=== PATIENT | male | born 1970 | race Hispanic/Latino ===

== ENCOUNTER 2021-06-07 10:04 | Emergency (ER) | payer SELFPAY ==
[~2021-06-07] VITALS: Ht 175.3 cm; Wt 67.1 kg
[2021-06-07] MEDS ORDERED: SOLU-MEDROL 125MG VIAL IVP SCH (11:00)
[2021-06-07] MEDS ORDERED: DOXYCYCLINE HYCLATE 100 MG TABLET PO SCH (11:00)
[2021-06-07] MEDS ORDERED: BENZONATATE 100 MG CAPSULE PO SCH (11:00)
[2021-06-07] MEDS ORDERED: IPRATROPIUM/ALBUTEROL SULFATE 3 ML SOLUTION IH ONE (11:00)
[2021-06-07] MEDS ORDERED: ALBU1.252 IH (12:21)
[2021-06-07] MEDS ORDERED: PRED20TA3 PO (12:21)
[2021-06-07] MEDS ORDERED: DOXY100C5 PO (12:21)
[2021-06-07 12:43] VITALS: BP 132/76
== END 2021-06-07 12:45 | disposition home or self-care (01) ==
LOC: EDH 10:04
DX: J44.1 Chronic obstructive pulmonary disease with (acute) exacerbation (principal); Z20.822 Contact with and (suspected) exposure to COVID-19; Z87.891 Personal history of nicotine dependence
CPT/HCPCS: 71045; 87635; 87804 ×2; 93005; 94640; 96374; 99285; C9803; J2930

== ENCOUNTER 2021-07-24 05:40 | Emergency (ER) | payer SELFPAY ==
[~2021-07-24] VITALS: Ht 175.3 cm; Wt 54.4 kg
[~2021-07-24 05:40] MED LIST: ALBU1.252 IH; DOXY100C5 PO; PRED20TA3 PO
[2021-07-24] MEDS ORDERED: SOLU-MEDROL 125MG VIAL ONE (05:54)
[2021-07-24] MEDS ORDERED: AZITHROMYCIN 250 MG TABLET PO ONE ×2 (05:54→06:00)
[2021-07-24] MEDS ORDERED: SOLU-MEDROL 125MG VIAL IVP ONE (06:00)
[2021-07-24] MEDS ORDERED: IPRATROPIUM/ALBUTEROL SULFATE 3 ML SOLUTION IH ONE (06:00)
[2021-07-24] MEDS ORDERED: ONDANSETRON 4MG INJ ONE (06:02)
[2021-07-24 06:07] LABS: ABG BASE EXCESS -2.2 mmol/L (-2.0-3.0); ABG OXYGEN SATURATION 86.6 % (95.0-99.0); ABG PCO2 53 mmHg (35-48)
[2021-07-24 06:11] LABS: BASOPHILS % (AUTO) 1.4 % (0.0-5.0); EOSINOPHILS % (AUTO) 11.3 % (0.0-8.0); LYMPHOCYTES % (AUTO) 20.2 % (21.0-51.0); MEAN CORPUSCULAR HEMOGLOBIN 25.9 pg (27.0-33.0); MEAN CORPUSCULAR HGB CONC 31.4 g/dL (32.0-36.0); MEAN CORPUSCULAR VOLUME 82.4 fL (79-99); MONOCYTES % (AUTO) 8.6 % (3.0-13.0); NEUTROPHILS % (AUTO) 58.2 % (40.0-77.0); PLATELET COUNT (AUTO) 460 K/uL (130-400); RED CELL DISTRIBUTION WIDTH 17.7 % (11.0-15.5); WHITE BLOOD COUNT (AUTO) 11.8 K/uL (4.8-10.8)
[2021-07-24 06:30] LABS: ALBUMIN 4.1 g/dL (3.5-5.0); BILIRUBIN,TOTAL 0.7 mg/dL (0.2-1.0); POTASSIUM 3.3 mmol/L (3.5-5.1); TOTAL PROTEIN, SERUM 7.6 g/dL (6.0-8.3)
[2021-07-24 06:36] LABS: B-TYPE NATRIURETIC PEPTIDE 13 pg/mL (0-100)
[2021-07-24 07:18] VITALS: BP 127/85
[2021-07-24] MEDS ORDERED: GUAIFENESIN-CODEINE 5 ML SYRUP PO SCH (07:20)
[2021-07-24] MEDS ORDERED: ALBUTEROL INHALER 90MCG/INH IH SCH (07:30)
[2021-07-24] MEDS ORDERED: AZIT1PAC7 PO (07:30)
[2021-07-24] MEDS ORDERED: PRED20TA3 PO (07:30)
== END 2021-07-24 08:00 | disposition home or self-care (01) ==
LOC: EDH 05:40
DX: J44.1 Chronic obstructive pulmonary disease with (acute) exacerbation (principal); Z20.822 Contact with and (suspected) exposure to COVID-19; F17.200 Nicotine dependence, unspecified, uncomplicated; Z79.52 Long term (current) use of systemic steroids; Z79.899 Other long term (current) drug therapy
CPT/HCPCS: 36415; 36600; 71045; 80053; 82435; 82803; 82947; 83605; 83880; 84132; 84295; 84484; 85018; 85025; 87635; 87804 ×2; 93005; 94644; 96374; 96375; 99285; C9803; J2405; J2930

== ENCOUNTER 2021-12-29 01:11 | Emergency (ER) | payer OTHER ==
[~2021-12-29] VITALS: Ht 175.3 cm; Wt 65.8 kg
[~2021-12-29 01:11] MED LIST changes: +AZIT1PAC7 PO
[2021-12-29] MEDS ORDERED: IPRATROPIUM/ALBUTEROL SULFATE 3 ML SOLUTION IH ONE (02:00)
[2021-12-29] MEDS ORDERED: SOLU-MEDROL 125MG VIAL IVP ONE (02:00)
[2021-12-29 02:28] VITALS: BP 114/86
[2021-12-29] MEDS ORDERED: IPRAHFA IH (02:48)
[2021-12-29] MEDS ORDERED: ALBU18HF7 IH (02:48)
[2021-12-29] MEDS ORDERED: PRED20TA3 PO (02:48)
== END 2021-12-29 03:03 | disposition home or self-care (01) ==
LOC: EDH 01:11
DX: J44.1 Chronic obstructive pulmonary disease with (acute) exacerbation (principal); F17.200 Nicotine dependence, unspecified, uncomplicated; Z79.52 Long term (current) use of systemic steroids
CPT/HCPCS: 93005; 94640; 96374; 99283; J2930

== ENCOUNTER 2022-01-27 13:18 | Emergency (ER) | payer OTHER ==
[~2022-01-27] VITALS: Ht 172.7 cm; Wt 67.1 kg
[~2022-01-27 13:18] MED LIST changes: +ALBU18HF7 IH; +IPRAHFA IH
[2022-01-27 13:48] LABS: EOSINOPHILS % (AUTO) 10.6 % (0.0-8.0); HEMATOCRIT 39.8 % (42-54); LYMPHOCYTES % (AUTO) 17.4 % (21.0-51.0); MEAN CORPUSCULAR HEMOGLOBIN 28.6 pg (27.0-33.0); MEAN CORPUSCULAR HGB CONC 32.4 g/dL (32.0-36.0); MEAN CORPUSCULAR VOLUME 88.2 fL (79-99); MONOCYTES % (AUTO) 9.5 % (3.0-13.0); NEUTROPHILS % (AUTO) 61.3 % (40.0-77.0); PLATELET COUNT (AUTO) 387 K/uL (130-400); RED BLOOD CELL COUNT(AUTO) 4.51 MIL/uL (4.50-6.20); RED CELL DISTRIBUTION WIDTH 16.6 % (11.0-15.5); WHITE BLOOD COUNT (AUTO) 8.2 K/uL (4.8-10.8)
[2022-01-27] MEDS ORDERED: IPRATROPIUM/ALBUTEROL SULFATE 3 ML SOLUTION IH ONE (14:00)
[2022-01-27] MEDS ORDERED: ALBUTEROL 0.083% 2.5 MG/3 ML INH IH ONE (14:00)
[2022-01-27] MEDS ORDERED: 0.9%NACL 1000ML 1,000 ML IV SCH (14:00)
[2022-01-27] MEDS ORDERED: SOLU-MEDROL 125MG VIAL IVP ONE (14:00)
[2022-01-27] MEDS ORDERED: AMOX/CLAV 875/125MG TAB PO ONE (14:00)
[2022-01-27] MEDS ORDERED: AZITHROMYCIN 250 MG TABLET PO ONE (14:00)
[2022-01-27] MEDS ORDERED: BUDESONIDE 0.5 MG/2 ML INH IH SCH (14:05)
[2022-01-27 14:08] LABS: CREATININE 0.9 mg/dL (0.5-1.5); POTASSIUM 3.7 mmol/L (3.5-5.1)
[2022-01-27 14:13] LABS: ALBUMIN 3.2 g/dL (3.5-5.0); BILIRUBIN,TOTAL 0.7 mg/dL (0.2-1.0); TOTAL PROTEIN, SERUM 6.7 g/dL (6.0-8.3)
[2022-01-27] MEDS ORDERED: IPRA4AER IH (15:23)
[2022-01-27] MEDS ORDERED: TIOT18CA3 IH (15:23)
[2022-01-27] MEDS ORDERED: PRED20TA3 PO (15:23)
[2022-01-27 16:05] VITALS: BP 153/86
== END 2022-01-27 16:19 | disposition home or self-care (01) ==
LOC: EDH 13:18
DX: J44.1 Chronic obstructive pulmonary disease with (acute) exacerbation (principal); R06.00 Dyspnea, unspecified; F17.200 Nicotine dependence, unspecified, uncomplicated; Z20.822 Contact with and (suspected) exposure to COVID-19; Z79.899 Other long term (current) drug therapy; Z98.890 Other specified postprocedural states
CPT/HCPCS: 36415; 71045; 80053; 84484; 85025; 87635; 87804 ×2; 93005; 94640 ×3; 96361; 96374; 99285; C9803; J2930; J7030

== ENCOUNTER 2022-02-06 11:37 | Emergency (ER) | payer OTHER ==
[~2022-02-06] VITALS: Ht 175.3 cm; Wt 64.9 kg
[~2022-02-06 11:37] MED LIST changes: +IPRA4AER IH; +TIOT18CA3 IH
[2022-02-06 11:38] VITALS: BP 134/101
[2022-02-06 12:28] LABS: CREATININE 0.8 mg/dL (0.5-1.5); POTASSIUM 3.3 mmol/L (3.5-5.1)
[2022-02-06 12:33] LABS: ALBUMIN 3.3 g/dL (3.5-5.0); TOTAL PROTEIN, SERUM 6.7 g/dL (6.0-8.3)
[2022-02-06 12:51] LABS: EOSINOPHILS % (AUTO) 12.8 % (0.0-8.0); HEMATOCRIT 42.2 % (42-54); LYMPHOCYTES % (AUTO) 27.1 % (21.0-51.0); MEAN CORPUSCULAR HEMOGLOBIN 29.1 pg (27.0-33.0); MEAN CORPUSCULAR HGB CONC 33.2 g/dL (32.0-36.0); MEAN CORPUSCULAR VOLUME 87.7 fL (79-99); MONOCYTES % (AUTO) 9.5 % (3.0-13.0); NEUTROPHILS % (AUTO) 49.1 % (40.0-77.0); PLATELET COUNT (AUTO) 428 K/uL (130-400); RED BLOOD CELL COUNT(AUTO) 4.81 MIL/uL (4.50-6.20); RED CELL DISTRIBUTION WIDTH 16.3 % (11.0-15.5); WHITE BLOOD COUNT (AUTO) 8.9 K/uL (4.8-10.8)
[2022-02-06] MEDS ORDERED: AMOX/CLAV 875/125MG TAB PO ONE (13:00)
[2022-02-06] MEDS ORDERED: AZITHROMYCIN 250 MG TABLET PO ONE (13:00)
[2022-02-06] MEDS ORDERED: GUAIFENESIN-CODEINE 5 ML SYRUP PO ONE (13:00)
[2022-02-06] MEDS ORDERED: POTASSIUM BICARB/CIT AC 25 MEQ TABLET.EFF PO ONE (13:00)
[2022-02-06] MEDS ORDERED: 0.9%NACL 1000ML 1,000 ML IV SCH ×2 (13:00→14:00)
[2022-02-06] MEDS ORDERED: SOLU-MEDROL 125MG VIAL IVP ONE (13:00)
[2022-02-06] MEDS ORDERED: ALBUTEROL 0.083% 2.5 MG/3 ML INH IH ONE ×2 (13:00)
[2022-02-06] MEDS ORDERED: IPRATROPIUM/ALBUTEROL SULFATE 3 ML SOLUTION IH ONE (13:00)
[2022-02-06] MEDS ORDERED: BUDESONIDE 0.5 MG/2 ML INH IH ONE (13:26)
[2022-02-06 13:34] LABS: APPEARANCE,URINE CLEAR (CLEAR); BILIRUBIN,URINE NEGATIVE (NEGATIVE); COLOR,URINE YELLOW (YELLOW); GLUCOSE, URINE (UA) NEGATIVE (NEGATIVE); KETONES,URINE NEGATIVE (NEGATIVE); LEUKOCYTE ESTERASE ,URINE NEGATIVE (NEGATIVE); NITRATE,URINE NEGATIVE (NEGATIVE); OCCULT BLOOD,URINE SMALL (NEGATIVE); PROTEIN,URINE NEGATIVE (NEGATIVE); UROBILINOGEN,URINE 0.2 mg/dL (0.2-1.0)
[2022-02-06 13:43] LABS: BACTERIA,URINE Few /HPF (None Seen); RBC,URINE 0-1 /HPF (0-1); WBC,URINE None Seen /HPF (0-1)
[2022-02-06 13:44] LABS: SQUAMOUS EPITHELIAL CELL,UR 0-2 /HPF (0-2)
[2022-02-06] MEDS ORDERED: PRED20TA3 PO (14:53)
[2022-02-06] MEDS ORDERED: ALBU8.5H8 IH (14:53)
== END 2022-02-06 15:30 | disposition home or self-care (01) ==
LOC: EDH 11:37
DX: J44.1 Chronic obstructive pulmonary disease with (acute) exacerbation (principal); Z20.822 Contact with and (suspected) exposure to COVID-19; F17.200 Nicotine dependence, unspecified, uncomplicated; Z79.52 Long term (current) use of systemic steroids
CPT/HCPCS: 99285; 96374; 71045; 87635; 84484; 80053; 85025; 87804 ×2; 81001; 36415; 93005; 94640 ×4; C9803; J7030; J2930

== ENCOUNTER 2022-06-17 00:11 | Inpatient (IN) | payer OTHER ==
[~2022-06-17] VITALS: Ht 172.7 cm; Wt 56.8 kg
[~2022-06-17 00:11] MED LIST changes: +ALBU8.5H8 IH
[2022-06-17] MEDS ORDERED: IPRATROPIUM/ALBUTEROL SULFATE 3 ML SOLUTION IH ONE ×2 (00:30)
[2022-06-17] MEDS ORDERED: CEFTRIAXONE 1G VIAL 2 GM in 0.9%NACL 100ML 100 ML IV ONE (00:30)
[2022-06-17] MEDS ORDERED: 0.9%NACL 1000ML 1,000 ML IV ONE (00:30)
[2022-06-17] MEDS ORDERED: MAGNESIUM 2GM PREMIX 50ML 50 ML IV SCH (00:30)
[2022-06-17] MEDS ORDERED: ALBUTEROL 0.083% 2.5 MG/3 ML INH IH ONE (00:30)
[2022-06-17] MEDS ORDERED: SOLU-MEDROL 125MG VIAL IVP ONE (00:30)
[2022-06-17] MEDS ORDERED: AZITHROMYCIN 500MG+NS 250ML 250 ML IV ONE (00:30)
[2022-06-17 01:05] LABS: EOSINOPHILS % (AUTO) 9.1 % (0.0-8.0); LYMPHOCYTES % (AUTO) 26.5 % (21.0-51.0); MEAN CORPUSCULAR HEMOGLOBIN 30.1 pg (27.0-33.0); MEAN CORPUSCULAR HGB CONC 33.6 g/dL (32.0-36.0); MEAN CORPUSCULAR VOLUME 89.5 fL (79-99); MONOCYTES % (AUTO) 8.3 % (3.0-13.0); NEUTROPHILS % (AUTO) 54.3 % (40.0-77.0); PLATELET COUNT (AUTO) 472 K/uL (130-400); RED BLOOD CELL COUNT(AUTO) 5.25 MIL/uL (4.50-6.20); RED CELL DISTRIBUTION WIDTH 14.1 % (11.0-15.5); WHITE BLOOD COUNT (AUTO) 13.6 K/uL (4.8-10.8)
[2022-06-17 01:15] LABS: CREATININE 0.8 mg/dL (0.5-1.5); POTASSIUM 3.3 mmol/L (3.5-5.1)
[2022-06-17 01:19] LABS: ALBUMIN 4.1 g/dL (3.5-5.0); TOTAL PROTEIN, SERUM 7.6 g/dL (6.0-8.3)
[2022-06-17] MEDS ORDERED: CEFTRIAXONE 1G VIAL ONE (01:37)
[2022-06-17 02:00] LABS: APPEARANCE,URINE CLOUDY (CLEAR); BILIRUBIN,URINE NEGATIVE (NEGATIVE); COLOR,URINE LIGHT-YELLOW (YELLOW); GLUCOSE, URINE (UA) NEGATIVE (NEGATIVE); KETONES,URINE NEGATIVE (NEGATIVE); LEUKOCYTE ESTERASE ,URINE NEGATIVE Leu/uL (NEGATIVE); NITRATE,URINE NEGATIVE (NEGATIVE); OCCULT BLOOD,URINE SMALL (NEGATIVE); PH,URINE 6.5 (5.0-8.0); PROTEIN,URINE NEGATIVE (NEGATIVE); UROBILINOGEN,URINE 0.2 mg/dL (0.2-1.0)
[2022-06-17 02:11] LABS: BACTERIA,URINE RARE /HPF (None Seen); MUCUS,URINE RARE LPF (None Seen)
[2022-06-17] MEDS ORDERED: ACETAMINOPHEN 325 MG TAB PO PRN ×2 (03:30)
[2022-06-17] MEDS ORDERED: ONDANSETRON 4MG INJ IV PRN (03:30)
[2022-06-17] MEDS ORDERED: NITROGLYCERIN 0.4 MG SL TAB SL PRN (03:30)
[2022-06-17] MEDS ORDERED: IPRATROPIUM/ALBUTEROL SULFATE 3 ML SOLUTION IH PRN (04:00)
[2022-06-17 05:00] VITALS: BP 153/90
[2022-06-17] MEDS ORDERED: ALBU90AE IH (05:13)
[2022-06-17] MEDS ORDERED: SOLU-MEDROL 125MG VIAL IVP SCH (06:00)
[2022-06-17] MEDS: IPRATROPIUM/ALBUTEROL SULFATE 3 ML SOLUTION IH SCH ×5 (06:41→22:22)
[2022-06-17 08:00] VITALS: BP 139/86
[2022-06-17] MEDS ORDERED: FAMOTIDINE 20MG TAB PO SCH (09:00)
[2022-06-17] MEDS: ENOXAPARIN SODIUM 30 MG/0.3 ML SQ SCH (10:03)
[2022-06-17 10:18] LABS: BASOPHILS % (AUTO) 0.2 % (0.0-5.0); HEMATOCRIT 45.5 % (42-54); LYMPHOCYTES % (AUTO) 8.5 % (21.0-51.0); MEAN CORPUSCULAR HEMOGLOBIN 29.9 pg (27.0-33.0); MEAN CORPUSCULAR VOLUME 90.6 fL (79-99); MONOCYTES % (AUTO) 0.5 % (3.0-13.0); NEUTROPHILS % (AUTO) 90.2 % (40.0-77.0); PLATELET COUNT (AUTO) 433 K/uL (130-400); RED BLOOD CELL COUNT(AUTO) 5.02 MIL/uL (4.50-6.20); RED CELL DISTRIBUTION WIDTH 14.5 % (11.0-15.5); WHITE BLOOD COUNT (AUTO) 10.9 K/uL (4.8-10.8)
[2022-06-17 10:28] LABS: HEMOGLOBIN A1C 5.6 % (4.0-6.0)
[2022-06-17 10:34] LABS: ALBUMIN 3.9 g/dL (3.5-5.0); MAGNESIUM 2.3 mg/dL (1.80-2.40); POTASSIUM 4.5 mmol/L (3.5-5.1); TOTAL PROTEIN, SERUM 7.4 g/dL (6.0-8.3)
[2022-06-17 12:00] VITALS: BP 151/85
[2022-06-17] MEDS: THIAMINE HCL 100 MG TABLET PO SCH (12:22)
[2022-06-17] MEDS: PANTOPRAZOLE 40 MG TAB DR PO SCH (12:22)
[2022-06-17] MEDS: Vitamin B Complex/Vit C/Folic Acid PO SCH (12:23)
[2022-06-17] MEDS: SOLU-MEDROL 40MG VIAL IVP SCH ×2 (12:26→21:19)
[2022-06-17 16:00] VITALS: BP 124/93
[2022-06-17] MEDS: BUDESONIDE 0.5 MG/2 ML INH IH SCH (18:57)
[2022-06-17] MEDS ORDERED: GUAIFENESIN-DM 200/20 MG 10 ML PO PRN (19:30)
[2022-06-17] MEDS ORDERED: BENZONATATE 100 MG CAPSULE PO PRN (19:30)
[2022-06-17 20:00] VITALS: BP 142/74
[2022-06-17] MEDS ORDERED: AZITHROMYCIN 500MG+NS 250ML 250 ML IV SCH (21:00)
[2022-06-17] MEDS ORDERED: CETIRIZINE HCL 5 MG TABLET PO SCH (21:00)
[2022-06-17] MEDS ORDERED: CEFTRIAXONE 1G VIAL IV SCH (21:00)
[2022-06-17] MEDS ORDERED: SERT50TA PO (22:05)
[2022-06-18] VITALS: BP 130/88
[2022-06-18] MEDS: IPRATROPIUM/ALBUTEROL SULFATE 3 ML SOLUTION IH SCH ×4 (02:38→14:39)
[2022-06-18 04:00] VITALS: BP 129/78
[2022-06-18 04:38] LABS: BASOPHILS % (AUTO) 0.1 % (0.0-5.0); HEMATOCRIT 40.5 % (42-54); LYMPHOCYTES % (AUTO) 6.9 % (21.0-51.0); MEAN CORPUSCULAR HGB CONC 33.1 g/dL (32.0-36.0); MEAN CORPUSCULAR VOLUME 90.8 fL (79-99); MONOCYTES % (AUTO) 4.7 % (3.0-13.0); NEUTROPHILS % (AUTO) 87.5 % (40.0-77.0); PLATELET COUNT (AUTO) 420 K/uL (130-400); RED BLOOD CELL COUNT(AUTO) 4.46 MIL/uL (4.50-6.20); WHITE BLOOD COUNT (AUTO) 16.9 K/uL (4.8-10.8)
[2022-06-18] MEDS: SOLU-MEDROL 40MG VIAL IVP SCH (05:25)
[2022-06-18 06:35] LABS: ALBUMIN 3.5 g/dL (3.5-5.0); MAGNESIUM 2.3 mg/dL (1.80-2.40); POTASSIUM 4.1 mmol/L (3.5-5.1); TOTAL PROTEIN, SERUM 6.8 g/dL (6.0-8.3)
[2022-06-18] MEDS: BUDESONIDE 0.5 MG/2 ML INH IH SCH (07:24)
[2022-06-18 07:45] VITALS: BP 120/85
[2022-06-18] MEDS: ENOXAPARIN SODIUM 30 MG/0.3 ML SQ SCH (08:31)
[2022-06-18] MEDS ORDERED: SOLU-MEDROL 40MG VIAL IVP SCH (09:00)
[2022-06-18 10:45] VITALS: BP 129/73
[2022-06-18] MEDS: THIAMINE HCL 100 MG TABLET PO SCH (10:50)
[2022-06-18] MEDS: Vitamin B Complex/Vit C/Folic Acid PO SCH (10:51)
[2022-06-18] MEDS: PANTOPRAZOLE 40 MG TAB DR PO SCH (10:51)
[2022-06-18] MEDS ORDERED: SERTRALINE HCL 50 MG TABLET PO SCH ×3 (11:00→21:00)
[2022-06-18] MEDS ORDERED: LEVO-70 PO (14:20)
[2022-06-18] MEDS ORDERED: BUDE10.2 IH (14:20)
[2022-06-18] MEDS ORDERED: PRED20TA3 PO (14:20)
[2022-06-18] MEDS ORDERED: SERT-439 PO (14:20)
[2022-06-18] MEDS ORDERED: CEFTRIAXONE 2GM VIAL IVP SCH (14:30)
[2022-06-18 16:00] VITALS: BP 143/78
[2022-06-18] MEDS ORDERED: PREDNISONE 20 MG TABLET PO SCH (16:00)
== END 2022-06-18 17:28 | disposition home or self-care (01) | DRG 871 ==
LOC: EDH 00:11 → EDHIP 00:12 → 4CH 04:56
PROVIDERS: ADMIT Hospitalist; ATTEND Hospitalist
DX: A41.9 Sepsis, unspecified organism (principal); J18.9 Pneumonia, unspecified organism; J44.1 Chronic obstructive pulmonary disease with (acute) exacerbation; J44.0 Chronic obstructive pulmonary disease with (acute) lower respiratory infection; Z20.822 Contact with and (suspected) exposure to COVID-19; F41.9 Anxiety disorder, unspecified; Z87.891 Personal history of nicotine dependence
CPT/HCPCS: 36415; 71045; 80053; 81001; 82550; 82948; 83036; 83605; 83735; 83880; 84145; 84484; 85025; 86140; 87040; 87071; 87205; 87635; 87804; 94640; 94664; 94760; G0378; J0456; J0696; J1650; J2920; J2930; J3475; J7030

== ENCOUNTER 2023-01-06 04:26 | Emergency (ER) | payer OTHER ==
[~2023-01-06 04:26] MED LIST changes: -ALBU1.252 IH; -ALBU18HF7 IH; -ALBU8.5H8 IH; +ALBU90AE IH; -AZIT1PAC7 PO; +BUDE10.2 IH; -DOXY100C5 PO; -IPRA4AER IH; -IPRAHFA IH; +LEVO-70 PO; +SERT-439 PO; -TIOT18CA3 IH
[2023-01-06 04:54] LABS: BASOPHILS % (AUTO) 1.3 % (0.0-5.0); EOSINOPHILS % (AUTO) 8.5 % (0.0-8.0); HEMATOCRIT 40.6 % (42-54); LYMPHOCYTES % (AUTO) 25.6 % (21.0-51.0); MONOCYTES % (AUTO) 8.9 % (3.0-13.0); NEUTROPHILS % (AUTO) 55.2 % (40.0-77.0); PLATELET COUNT (AUTO) 488 K/uL (130-400); RED BLOOD CELL COUNT(AUTO) 4.46 MIL/uL (4.50-6.20); RED CELL DISTRIBUTION WIDTH 14.8 % (11.0-15.5); WHITE BLOOD COUNT (AUTO) 10.7 K/uL (4.8-10.8)
[2023-01-06 04:58] LABS: CREATININE 0.9 mg/dL (0.5-1.5); POTASSIUM 3.5 mmol/L (3.5-5.1)
[2023-01-06] MEDS ORDERED: ENOXAPARIN SODIUM 80 MG/0.8 ML SQ ONE (05:00)
[2023-01-06] MEDS ORDERED: NITROGLYCERIN 1GM OINT 1 INCH/1GM TD ONE (05:00)
[2023-01-06] MEDS ORDERED: 0.9%NACL 1000ML 1,000 ML IV ONE (05:00)
[2023-01-06] MEDS ORDERED: GUAIFENESIN 600 MG TABLET.ER PO ONE (05:00)
[2023-01-06] MEDS ORDERED: ASPIRIN 325MG TAB PO ONE (05:00)
[2023-01-06] MEDS ORDERED: SOLU-MEDROL 125MG VIAL IVP ONE (05:00)
[2023-01-06] MEDS ORDERED: IPRATROPIUM/ALBUTEROL SULFATE 3 ML SOLUTION IH ONE ×2 (05:00→10:00)
[2023-01-06 05:02] LABS: ALBUMIN 3.1 g/dL (3.5-5.0); TOTAL PROTEIN, SERUM 6.3 g/dL (6.0-8.3)
[2023-01-06] MEDS ORDERED: GUAIFENESIN/DEXTROMETHORPHAN 1 EACH TAB.SR.12H PO ONE (05:08)
[2023-01-06 05:10] LABS: INR 0.96 (0.85-1.15); PROTHROMBIN TIME 10.5 SEC (9.6-11.6)
[2023-01-06 05:11] LABS: PARTIAL THROMBOPLASTIN TIME 29.9 SEC (26.3-35.5)
[2023-01-06] MEDS ORDERED: LEVO-70 PO (09:53)
[2023-01-06] MEDS ORDERED: ALBU18HF7 IH (09:53)
[2023-01-06] MEDS ORDERED: PRED20TA3 PO (09:53)
[2023-01-06] MEDS ORDERED: LEVOFLOXACIN 500 MG TABLET PO SCH (10:00)
[2023-01-06] MEDS ORDERED: SOLU-MEDROL 40MG VIAL IVP ONE (10:00)
[2023-01-06 10:10] VITALS: BP 113/78
== END 2023-01-06 10:14 | disposition home or self-care (01) ==
LOC: EDH 04:26
DX: J44.1 Chronic obstructive pulmonary disease with (acute) exacerbation (principal); J45.909 Unspecified asthma, uncomplicated; F17.200 Nicotine dependence, unspecified, uncomplicated; Z20.822 Contact with and (suspected) exposure to COVID-19; Z79.899 Other long term (current) drug therapy; Z98.890 Other specified postprocedural states
CPT/HCPCS: 99285; 96374; 71045; 87635; 96361; 84484; 80053; 85025; 85610; 85730; 36415; 96376; 93005; 94640 ×2; C9803; J7030; J2930; J2920; J1650